=== PATIENT | male | born 1970 | race Caucasian/White ===

== ENCOUNTER 2017-09-29 20:50 | Emergency (ER) | payer OTHER ==
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
--- NOTE | 2017-09-30 09:16 | Diagnostic Imaging Report ---
Exam: Right foot. HISTORY: Pain Findings: Multiple views of right foot reviewed. The study demonstrates no evidence of fracture dislocation. There is no evidence of soft tissue swelling. IMPRESSION normal examination right foot.
== END 2017-09-29 22:12 | disposition home or self-care (01) ==
LOC: ER 20:50
DX: S93.601A Unspecified sprain of right foot, initial encounter (principal); Z88.6 Allergy status to analgesic agent; V49.9XXA Car occupant (driver) (passenger) injured in unspecified traffic accident, initial encounter; Y93.89 Activity, other specified; Y92.89 Other specified places as the place of occurrence of the external cause; Y99.8 Other external cause status
CPT/HCPCS: 73630-TC-RT; Z7502